=== PATIENT | female | born 1930 | race Caucasian/White ===

== ENCOUNTER 2016-10-18 23:59 | Inpatient (IN) | payer MEDICARE, OTHER ==
--- NOTE | ~2016-10-18 | CN ---
Consultation Report [facility] [address] [place]. [address] NAME: ESTHER EPPERSON : 30 STATUS : ADM IN PAT#: [id number] AGE: 85 ADM/REG DATE : 10/19/16 MR#: [id number] REPORT SERV DATE: 10/23/16 DICTATED BY: ALFRED LOONEY DATE: 10/23/16 REPORT STATUS : Draft TRANSCRIBED BY: MODL DATE: 10/23/16 DATE OF CONSULTATION: 10/23/2016 REASON FOR CONSULTATION: Arrhythmia and elevated troponin. HISTORY OF PRESENT ILLNESS: Ms. Epperson is an 85-year-old female whom I have been asked to see by the Hospitalist Service for management of the above conditions. She has been hospitalized since 10/19/2016 after presenting with cough, shortness of breath, and altered mental status with ensuing workup suggestive of pneumonia. She has been treated with broad-spectrum antibiotics and overnight developed progressive respiratory failure and tachycardia. I see that her heart rate was as high as 170s with likely sinus tachycardia. She was administered metoprolol and adenosine, but had persistent sinus tachycardia throughout most of the night. She also had an episode of nonsustained VT of approximately 20 seconds. She was started on amiodarone drip and continues on this. Her troponin has been elevated at 0.4. History is limited as the patient is on a non-rebreather with baseline dementia, but her [id number], her power of sports attorney, is at bedside and provides collateral history. He states that prior to arrival, the patient had mild cognitive impairment and could ambulate short distances with a walker. PAST MEDICAL HISTORY: Negative for any cardiac disease, specifically no AR, stroke, valvular heart disease, or prior heart rhythm disorder. She does have diabetes, hypertension, dementia, history of schizoaffective disorder with prior suicidal ideations, remote DVT, remote history of right breast cancer status post lumpectomy and radiation treatment, chronic lower back pain, and she also has gastroesophageal reflux disease. MEDICATIONS: Reviewed per medical record, notable for amlodipine, lisinopril, metoprolol, and simvastatin. ALLERGIES: SULFA CAUSES ITCHING, NAUSEA, AND VOMITING. MIDAZOLAM, UNKNOWN REACTION. FAMILY HISTORY: Noncontributory. SOCIAL HISTORY: The patient lives alone. There is no history of tobacco, alcohol, or illicits. REVIEW OF SYSTEMS: Unable to obtain due to current medical illness. PHYSICAL EXAMINATION: VITAL SIGNS: Heart rate is approximately 130, blood pressure is 150/80 by most recent noninvasive assessment, respiratory rate is 20. GENERAL: Elderly female, sleeping in bed, difficult to arouse. Consultation Report [facility] [id number] [place]. [address] NAME: ESTHER EPPERSON : 30 STATUS : ADM IN PAT#: [id number] AGE: 85 ADM/REG DATE : 10/19/16 MR#: [id number] REPORT SERV DATE: 10/23/16 DICTATED BY: ALFRED LOONEY DATE: 10/23/16 REPORT STATUS : Draft TRANSCRIBED BY: MODEldon DATE: 10/23/16 NECK: Supple. CARDIOVASCULAR: Tachycardic. Diminished S1 and S2. No obvious murmurs. PULMONARY: Diminished inspiratory effort, but no obvious rales and no wheezes currently. ABDOMEN: Soft, nondistended, and nontender. EXTREMITIES: Warm. LABORATORY DATA: Reviewed, notable for WBC of 7.2, hemoglobin 11.2, hematocrit 32.8, platelets 189. Sodium 139, potassium 4.0, chloride 105, bicarb 22, BUN 25, creatinine 0.95, glucose 180. Troponin 0.42 followed by 0.23. IMAGING: Chest x-ray demonstrates tortuous ectatic aorta, consolidation in the right base with associated pleural effusion. EKG and telemetry reviewed. Most recent EKG on 10/23/2016, time 0258 hours, demonstrates a narrow-complex tachycardia at a rate of approximately 150. No clear P waves. Telemetry demonstrates narrow-complex tachycardia, heart rate ranging from 120 to 170 suggestive of a sinus mechanism and frequent PACs and nonsustained VT with longest duration of approximately 20 seconds. IMPRESSION/RECOMMENDATIONS: 1. Pneumonia. 2. Respiratory failure. 3. Supraventricular tachycardia with data most suggestive of sinus tachycardia as underlying mechanism. 4. Ventricular tachycardia, nonsustained. 5. Dementia. 6. Hypertension. 7. Transient hypotension. 8. Elevated troponin suggestive of demand ischemia secondary to respiratory failure/pneumonia. The etiology of the patient's current tachycardia is most likely related to a sinus mechanism as opposed to re-entry. There has been a wide range of heart rates in the setting of underlying respiratory failure and pneumonia. Use of amiodarone temporarily for management of ventricular tachycardia is reasonable. Recommend continuous infusion today and would consider prolonging and/or transitioning to p.o. amiodarone if shows recurrent dysrhythmia. Metoprolol is also reasonable, but with low blood pressure, we would hold lisinopril for now. We will check an echocardiogram to rule out underlying cardiomyopathy. Regarding elevated troponin most suggestive of demand ischemia as opposed to acute coronary syndrome, we would not treat with anticoagulants. The patient is a poor candidate for any invasive testing and would defer an ischemic evaluation given overall clinical picture. I discussed the patient's medical severity with her power of sports attorney who confirms that her code status is DNR and DNI. Continue to provide supportive care for the above conditions and hope for recovery. Consultation Report [address] [place]. [address] NAME: ESTHER EPPERSON : 30 STATUS : ADM IN PAT#: [id number] AGE: 85 ADM/REG DATE : 10/19/16 MR#: [id number] REPORT SERV DATE: 10/23/16 DICTATED BY: ALFRED LOONEY DATE: 10/23/16 REPORT STATUS : Draft TRANSCRIBED BY: PRIYANK DATE: 10/23/16 FILEMON/PRIYANK Alfred Looney MD / [id number] CC: Corina Mena M.D.
--- NOTE | ~2016-10-18 | HP ---
History And Physical [address] [place]. [address] NAME: ESTHER EPPERSON : 30 STATUS : ADM IN PAT#: [id number] AGE: 85 ADM/REG DATE : 10/19/16 MR#: [id number] REPORT SERV DATE: 10/19/16 DICTATED BY: KESHIA FERNANDEZ DATE: 10/19/16 REPORT STATUS : Draft TRANSCRIBED BY: MODL DATE: 10/19/16 DATE OF ADMISSION: 10/19/2016 CHIEF COMPLAINT: An 85-year-old female at assisted living facility at [facility] now presenting with increasing shortness of breath, cough, and confusion. HISTORY OF PRESENTING ILLNESS: The patient's history was obtained through careful interview with the patient and [id number], who is the power of mergers and acquisitions attorney, coupled with review of [facility] and [facility] medical records. The patient first began to have hoarseness in her voice around 10/14/2016 or 10/15/2016 and then has had increasing shortness of breath characterized by dyspnea on exertion with a nonproductive cough. On the day prior to admission, she was weak, unstable. She fell twice. One time, she fell and hit her head, and was actually too weak to get up without complete assistance from friends and staff. She has had increasing confusion on her chronic dementia. No nausea or vomiting. No diarrhea. She has been more somnolent and sleeping most of the day. Sometimes, she sleeps straight through mealtime and has been skipping meals and has a slightly poor appetite. She describes subjective fevers and chills. She has chronic back pain. She has also noticed chest discomfort with breathing and coughing. She claims that her left chest hurts worse than her right chest that is mostly under her left breast without radiation. She is unable to really give a precise quality or severity of this pain. There is a report that her blood pressure dropped to about 60/40 at the assisted living facility today prior to coming into the hospital. REVIEW OF SYSTEMS: Otherwise, 14-point review of systems was obtained and was negative. PAST MEDICAL HISTORY: 1. Dementia. 2. Schizoaffective disorder. 3. Diabetes. 4. Hypertension. 5. Gastroesophageal reflux disorder, colon polyps, seen by Dr. Ni. 6. DVT more than 10 years ago. History And Physical [address] [place]. [address] NAME: ESTHER EPPERSON : 30 STATUS : ADM IN [facility]#: [id number] AGE: 85 ADM/REG DATE : 10/19/16 MR#: [id number] REPORT SERV DATE: 10/19/16 DICTATED BY: KESHIA FERNANDEZ DATE: 10/19/16 REPORT STATUS : Draft TRANSCRIBED BY: MODL DATE: 10/19/16 7. Macular degeneration. 8. Chronic back pain with scoliosis. 9. Right breast cancer, 2006, status post surgery, radiation, and tamoxifen. 10.Right hydronephrosis. PAST SURGICAL HISTORY: Right lumpectomy for breast cancer. ALLERGIES: SULFA AND MIDAZOLAM. SOCIAL HISTORY: No tobacco abuse. No alcohol abuse. Resides in assisted living facility at [facility]. 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 She never . Has no children. Her sister and [id number] are power of mergers and acquisitions attorney. FAMILY HISTORY: Diabetes and coronary artery disease. CURRENT MEDICATIONS: Include Colace, Celexa, Norvasc, Flonase, folic acid, glipizide, ibuprofen p.r.n., breathing treatments, Metoprolol-XL, melatonin, lisinopril, other eyedrops, Seroquel, ranitidine, simvastatin, MiraLAX, multivitamins, p.r.n. pain and anxiety medications. PHYSICAL EXAMINATION: VITAL SIGNS: Temperature 97.6, pulse 62, blood pressure 112/39, respiratory rate 20, O2 saturation 87% on room air. GENERAL: A chronically ill-appearing female, but in no evidence of particular distress while I am evaluating her. HEENT: Pupils equal, round, and reactive to light. No conjunctival pallor. No scleral icterus. Nares are patent. Oropharynx is clear of obstruction. Moist mucous membranes. NECK: Trachea midline. No thyromegaly. LYMPH: No cervical lymphadenopathy. No supraclavicular lymphadenopathy. RESPIRATORY: The patient has diminished breath sounds at the base of both lungs. Really seems symmetrical by my exam. She does have egophony at the base of both lungs as well. She has scattered rhonchi. No wheezes. No rales. Really nonlabored respiratory effort while at rest in the bed. CARDIOVASCULAR: Regular rate and rhythm. No murmurs, rubs, or gallops. She does have trace lower extremity edema around the ankles and feet that is symmetrical. ABDOMEN: Soft, nontender, nondistended. Normal bowel sounds auscultated throughout. No organomegaly. DERMATOLOGICAL: Warm and dry extremities. No pallor, no cyanosis. PSYCHIATRIC: Normal affect. A very pleasant mood. No current hallucinations. No suicidal ideation. No homicidal ideation. She is alert, but poorly oriented to time, location, and her recent history. LABORATORY DATA: White blood cell count 6.0, hemoglobin 9.5, hematocrit 29, platelets 130. Sodium 139, potassium 4.2, chloride 102, bicarb 29, BUN 39, creatinine 1.27 from baseline creatinine of 0.8, glucose 138. Urinalysis negative for infection. INR 1.2. Troponin negative. History And Physical [address] [address] NAME: ESTHER EPPERSON : 30 STATUS : ADM IN [facility]#: [id number] AGE: 85 ADM/REG DATE : 10/19/16 MR#: [id number] REPORT SERV DATE: 10/19/16 DICTATED BY: KESHIA FERNANDEZ DATE: 10/19/16 REPORT STATUS : Draft TRANSCRIBED BY: PRIYANK DATE: 10/19/16 STUDIES: Chest x-ray by my own evaluation shows large peripheral right lower lung pneumonia. ASSESSMENT AND PLAN: 1. Facility-acquired pneumonia. Check blood cultures. Place on IV antibiotics including cefepime and IV vancomycin. Obtain a swallow evaluation to rule out aspiration risk. 2. Hypoxic respiratory failure. 3. Acute kidney injury. Place on IV fluids. 4. Dementia. 5. Schizoaffective disorder. 6. Diabetes. Check hemoglobin A1c. Place on sliding scale insulin. KPL/MODL Keshia Fernandez M.D. / [id number] CC: Corina Lima M.D.
--- NOTE | ~2016-10-18 | DS ---
Discharge Summary [facility] [address] [place]. [address] NAME: ESTHER EPPERSON : 30 STATUS : DIS IN PAT#: [id number] AGE: 85 ADM/REG DATE : 10/19/16 MR#: [id number] REPORT SERV DATE: 10/25/16 DICTATED BY: DORIAN SMITH DATE: 10/24/16 REPORT STATUS : Draft TRANSCRIBED BY: MODL DATE: 10/24/16 ADMISSION DATE: 10/19/2016 DISCHARGE DATE: 10/24/2016 The patient will be discharged to hospice. HOSPITAL COURSE: An 85-year-old female with known history of dementia, does not know what year it is, is at [facility]. The patient has a known history of schizoaffective disorder, dementia, diabetes, hypertension, GERD, DVT more than 10 years ago, macular degeneration, right breast cancer 2007 status post surgery radiation with tamoxifen, right hydronephrosis, chronic back pain, scoliosis with right lumpectomy in the past. The patient came in initially with hoarseness of voice, increased shortness of breath, dyspnea on exertion, nonproductive cough, increased confusion, encephalopathy, severe sepsis and encephalopathy present on admission due to pneumonia, placed on IV vancomycin and cefepime, hypoxic respiratory failure, dementia, schizoaffective disorder, DI improved with fluids. The patient unfortunately had a nonsustained ventricular tachycardia beats, troponinemia. Given her age comorbidities, lack of meaningful recovery with intervention supervisor filter assembly stated ischemic workup intervention would not be a good candidacy for this patient, was placed with adenosine to amiodarone drip to amiodarone bolus. When I saw the patient, I spoke frankly with the power of environmental attorney. Power of environmental attorney stated she does not have a will to live, would rather just go to [facility], stay DNR DNI, and would like the patient to go to hospice. Given her nonsustained ventricular tachycardia, only being maintained with amiodarone, I am concerned about quick demise risk. As a result, the patient and family and team agree with hospice and going to hospice today. DISCHARGE DIAGNOSES: Pneumonia, respiratory failure, supraventricular tachycardia, nonsustained ventricular tachycardia, dementia, hypertension, schizoaffective disorder with increase her risk of nonsustained ventricular tachycardia and fatal arrhythmia. All questions were answered. It took well over 30 minutes to do. RIC/PRIYANK Dorian Smith DO / [id number] CC: DO Maricel Stubbs M.D.
[~2016-10-18 23:59] MED LIST: ADVIL PO; ASAB PO; ATRONASAL3 NAS; ATV.5 PO; ATV1 PO; CALTRA600D PO; CELEXA40 MG PO; DIGESTIVE ADVANTAGE PO; DSS PO; FLONASE NAS; GLUCCHONDR PO; GLUCXL2.5 PO; LEXAPRO10 PO; LISINOPRIL40 MG PO; LORT7 PO; MIRALAXPKT PO; MURO1285% OPH; MURO5OOIN OPH; NEXIUM40 PO; NORV10 PO; PREDFORTE OPH; PREDMILDOP OPH; PRIN10 PO; SEROQUEL XR200 MG PO; SLOWMAG PO; STOOL SOFTEN100 MG PO; TOPXL25 PO; VERAMYST27.5 MCG NAS; VITAMIN C100 MG PO; ZANTAC 150 PO; ZOCOR40 PO; [UNRECOGNIZED DRUG - OTHER] PO
[2016-10-19 00:49] LABS: BASOPHILS 0.3 %; BASOPHILS ABSOLUTE 0.02 10/3/uL (0.0-0.16); EOSINOPHILS ABSOLUTE 0.12 10/3/uL (0.0-0.53); HEMOGLOBIN 9.5 g/dL (12.0-16.0); IMMATURE GRANULOCYTES 0.3 %; IMMATURE GRANULOCYTES ABSOLUTE 0.02 10/3/uL (0.0-0.11); LYMPHOCYTES 18.4 %; LYMPHOCYTES ABSOLUTE 1.11 10/3/uL (0.67-4.30); MEAN CORPUSCULAR HEMOGLOB 28.9 pg (26.0-34.0); MEAN CORPUSCULAR VOLUME 87.5 fL (80-100); MEAN PLATELET VOLUME 10.2 fL (9.2-13.0); MONOCYTES 10.3 %; MONOCYTES ABSOLUTE 0.62 10/3/uL (0.21-1.20); NEUTROPHILS 68.7 %; NEUTROPHILS ABSOLUTE 4.14 10/3/uL (2.02-8.40); RBC DISTRIBUTION WIDTH 13.7 % (12.0-16.0); RED CELL COUNT 3.29 10/6/uL (4.0-5.6)
[2016-10-19 00:50] LABS: HEMATOCRIT 28.8 % (36.0-48.0); MANUAL DIFF NO %; PLATELET COUNT 130 10/3/uL (150-400)
[2016-10-19 00:53] LABS: ASCORBIC ACID (UR NOT ORDER) NEG (NEG); BILIRUBIN, URINE NEGATIVE (NEG); ER URINALYSIS TAT 0 Hrs 00 Mins; KETONE, URINE NEGATIVE (NEG); LEUKOCYTE ESTERASE(NOT OR NEG (NEG); NITRITE (URINE) NEG (NEG); WBC (NOT ORDERED) (RFLEX) 2 (0-5)
[2016-10-19 00:57] LABS: INTERNATIONAL NORMAL RATI 1.2 UNITS (-); PROTIME (NOT ORD) 14.6 SEC (12.0-14.5)
[2016-10-19 01:06] LABS: CALCIUM, SERUM 8.1 MG/DL (8.5-10.4); CHEST PAIN PROFILE TAT 0 Hrs 21 Mins; CHLORIDE, SERUM 102 MMOL/L (96-112); CO2 (CARBON DIOXIDE) 29 MMOL/L (24-34); CREATININE 1.27 MG/DL (0.55-1.02); GFR AFRICAN AMERICAN 45 ML/MIN (>=60); GFR NON AFRICAN AMERICAN 38 ML/MIN (>=60); GLUCOSE, SERUM 134 MG/DL (60-99); POTASSIUM, SERUM 4.2 MMOL/L (3.5-5.3); SODIUM, SERUM 139 MMOL/L (135-148); TROPONIN I <0.02 NG/ML (<0.05)
[2016-10-19 01:07] LABS: BUN (BLOOD UREA NITROGEN) 39 MG/DL (6-23)
[2016-10-19 01:11] LABS: BAND NEUTROPHILS 3 %; ER DIFF TAT 0 Hrs 26 Mins; LYMPHOCYTES 14 %; LYMPHOCYTES ABSOLUTE (CALC) 0.84 10/3/uL (0.67-4.30); MONOCYTES 10 %; NEUTROPHILS ABSOLUTE (CALC) 4.56 10/3/uL (2.02-8.40); PLATELET ESTIMATE SLT DEC (ADEQUATE); RBC MORPHOLOGY NORM (NORMAL); SEGMENTED NEUTROPHIL (0) 73 %; TOTAL NUCLEATED CELLS 100
[2016-10-19] MEDS ORDERED: NORV10 PO (02:39)
[2016-10-19] MEDS ORDERED: CELEXA40 MG PO (02:40)
[2016-10-19] MEDS ORDERED: DSS PO (02:40)
[2016-10-19] MEDS ORDERED: FLONASE NAS (02:41)
[2016-10-19] MEDS ORDERED: FOLIC PO (02:41)
[2016-10-19] MEDS ORDERED: GLUCXL2.5 PO (02:42)
[2016-10-19] MEDS ORDERED: ATRONASAL3 NAS (02:43)
[2016-10-19] MEDS ORDERED: MOTRIN IB200 MG PO (02:43)
[2016-10-19] MEDS ORDERED: MELATONIN5 M1 PO (02:44)
[2016-10-19] MEDS ORDERED: LISINOPRIL40 MG PO (02:44)
[2016-10-19] MEDS ORDERED: LOP25 PO (02:45)
[2016-10-19] MEDS ORDERED: PREDFORTE OPH (02:46)
[2016-10-19] MEDS ORDERED: ZOCOR40 PO (02:47)
[2016-10-19] MEDS ORDERED: ZANTAC150 MG PO (02:47)
[2016-10-19] MEDS ORDERED: SEROQUEL200 MG PO (02:47)
[2016-10-19] MEDS ORDERED: MURO1285% OPH (02:48)
[2016-10-19] MEDS ORDERED: THERA M PLUS PO (02:49)
[2016-10-19] MEDS ORDERED: T PO ×2 (02:50→02:51)
[2016-10-19] MEDS ORDERED: MIRALAX POWDER1 PKT PO (02:50)
[2016-10-19] MEDS ORDERED: BISR PR (02:51)
[2016-10-19] MEDS ORDERED: COMBIVENT RESPIM4 GM INH (02:54)
[2016-10-19] MEDS ORDERED: ATV.5 PO (02:54)
[2016-10-19] MEDS ORDERED: NORCO1 TA1 PO (02:55)
[2016-10-19] MEDS ORDERED: SENTAB PO (02:56)
[2016-10-19 08:35] LABS: BASOPHILS 0.2 %; BASOPHILS ABSOLUTE 0.01 10/3/uL (0.0-0.16); EOSINOPHILS ABSOLUTE 0.18 10/3/uL (0.0-0.53); HEMATOCRIT 30.5 % (36.0-48.0); HEMOGLOBIN 10.2 g/dL (12.0-16.0); IMMATURE GRANULOCYTES 0.3 %; IMMATURE GRANULOCYTES ABSOLUTE 0.02 10/3/uL (0.0-0.11); LYMPHOCYTES 18.4 %; MEAN CORPUS HGB CONC 33.4 g/dL (32.0-36.0); MEAN CORPUSCULAR HEMOGLOB 28.8 pg (26.0-34.0); MEAN CORPUSCULAR VOLUME 86.2 fL (80-100); MEAN PLATELET VOLUME 10.2 fL (9.2-13.0); MONOCYTES 10.7 %; MONOCYTES ABSOLUTE 0.64 10/3/uL (0.21-1.20); NEUTROPHILS 67.4 %; NEUTROPHILS ABSOLUTE 4.03 10/3/uL (2.02-8.40); PLATELET COUNT 135 10/3/uL (150-400); RBC DISTRIBUTION WIDTH 13.7 % (12.0-16.0); RED CELL COUNT 3.54 10/6/uL (4.0-5.6)
[2016-10-19 08:36] LABS: MANUAL DIFF NO %
[2016-10-19 08:38] LABS: INTERNATIONAL NORMAL RATI 1.1 UNITS (-); PARTIAL THROMBO TIME 35.3 SEC (22.5-37.2); PROTIME (NOT ORD) 14.5 SEC (12.0-14.5)
[2016-10-19 08:50] LABS: A/G RATIO 0.7 (0.7-1.9); ALBUMIN 2.7 G/DL (3.5-5.0); ALKALINE PHOSPHATASE 51 U/L (45-117); BUN (BLOOD UREA NITROGEN) 33 MG/DL (6-23); CALCIUM, SERUM 8.4 MG/DL (8.5-10.4); CHLORIDE, SERUM 105 MMOL/L (96-112); CO2 (CARBON DIOXIDE) 28 MMOL/L (24-34); CREATININE 1.14 MG/DL (0.55-1.02); GFR AFRICAN AMERICAN 51 ML/MIN (>=60); GFR NON AFRICAN AMERICAN 44 ML/MIN (>=60); GLOBULIN 3.9 G/DL (2.5-4.1); GLUCOSE, SERUM 98 MG/DL (60-99); POTASSIUM, SERUM 4.4 MMOL/L (3.5-5.3); SGOT(AST) 11 U/L (5-40); SGPT(ALT) 14 U/L (5-65); SODIUM, SERUM 140 MMOL/L (135-148); TOTAL BILIRUBIN 0.2 MG/DL (0-1.2); TOTAL PROTEIN 6.6 G/DL (6.0-8.5)
[2016-10-19 10:10] LABS: PROCALCITONIN 0.24 ng/mL (<0.5)
[2016-10-20 06:25] LABS: HEMATOCRIT 32.1 % (36.0-48.0); HEMOGLOBIN 10.8 g/dL (12.0-16.0); MEAN CORPUS HGB CONC 33.6 g/dL (32.0-36.0); MEAN CORPUSCULAR HEMOGLOB 29.2 pg (26.0-34.0); MEAN CORPUSCULAR VOLUME 86.8 fL (80-100); MEAN PLATELET VOLUME 10.2 fL (9.2-13.0); PLATELET COUNT 157 10/3/uL (150-400); RBC DISTRIBUTION WIDTH 13.3 % (12.0-16.0); WHITE BLOOD CELLS 7.7 10/3/uL (4.5-10.5)
[2016-10-20 06:28] LABS: MANUAL DIFF YES %
[2016-10-20 06:33] LABS: CALCIUM, SERUM 8.1 MG/DL (8.5-10.4); CHLORIDE, SERUM 107 MMOL/L (96-112); CO2 (CARBON DIOXIDE) 24 MMOL/L (24-34); CREATININE 0.88 MG/DL (0.55-1.02); GFR AFRICAN AMERICAN 69 ML/MIN (>=60); GFR NON AFRICAN AMERICAN 60 ML/MIN (>=60); POTASSIUM, SERUM 4.3 MMOL/L (3.5-5.3); SODIUM, SERUM 141 MMOL/L (135-148)
[2016-10-20 06:36] LABS: BUN (BLOOD UREA NITROGEN) 19 MG/DL (6-23); GLUCOSE, SERUM 163 MG/DL (60-99)
[2016-10-20 07:48] LABS: BAND NEUTROPHILS 8 %; EOSINOPHILS 2 %; EOSINOPHILS ABSOLUTE (CALC) 0.15 10/3/uL (0.0-0.53); LYMPHOCYTES 14 %; LYMPHOCYTES ABSOLUTE (CALC) 1.08 10/3/uL (0.67-4.30); MONOCYTES 10 %; MONOCYTES ABSOLUTE (CALC) 0.77 10/3/uL (0.21-1.20); PLATELET ESTIMATE ADQ (ADEQUATE); SEGMENTED NEUTROPHIL (0) 66 %; TOTAL NUCLEATED CELLS 100
[2016-10-20 07:49] LABS: RBC MORPHOLOGY NORM (NORMAL)
[2016-10-21 07:08] LABS: BASOPHILS 0.1 %; BASOPHILS ABSOLUTE 0.01 10/3/uL (0.0-0.16); EOSINOPHILS 1.2 %; EOSINOPHILS ABSOLUTE 0.08 10/3/uL (0.0-0.53); HEMOGLOBIN 10.8 g/dL (12.0-16.0); IMMATURE GRANULOCYTES 1.7 %; IMMATURE GRANULOCYTES ABSOLUTE 0.12 10/3/uL (0.0-0.11); LYMPHOCYTES 12.9 %; LYMPHOCYTES ABSOLUTE 0.89 10/3/uL (0.67-4.30); MEAN CORPUS HGB CONC 33.8 g/dL (32.0-36.0); MEAN PLATELET VOLUME 9.4 fL (9.2-13.0); MONOCYTES 13.4 %; MONOCYTES ABSOLUTE 0.92 10/3/uL (0.21-1.20); NEUTROPHILS 70.7 %; NEUTROPHILS ABSOLUTE 4.86 10/3/uL (2.02-8.40); PLATELET COUNT 165 10/3/uL (150-400); RBC DISTRIBUTION WIDTH 13.1 % (12.0-16.0); RED CELL COUNT 3.72 10/6/uL (4.0-5.6); WHITE BLOOD CELLS 6.9 10/3/uL (4.5-10.5)
[2016-10-21 07:12] LABS: MANUAL DIFF NO %
[2016-10-21 07:25] LABS: CALCIUM, SERUM 8.3 MG/DL (8.5-10.4); CHLORIDE, SERUM 102 MMOL/L (96-112); CO2 (CARBON DIOXIDE) 25 MMOL/L (24-34); CREATININE 0.79 MG/DL (0.55-1.02); GFR AFRICAN AMERICAN 79 ML/MIN (>=60); GFR NON AFRICAN AMERICAN 68 ML/MIN (>=60); SODIUM, SERUM 137 MMOL/L (135-148)
[2016-10-21 07:26] LABS: BUN (BLOOD UREA NITROGEN) 11 MG/DL (6-23); GLUCOSE, SERUM 112 MG/DL (60-99)
[2016-10-22 07:07] LABS: HEMATOCRIT 32.8 % (36.0-48.0); HEMOGLOBIN 11.2 g/dL (12.0-16.0); MEAN CORPUS HGB CONC 34.1 g/dL (32.0-36.0); MEAN CORPUSCULAR HEMOGLOB 28.9 pg (26.0-34.0); MEAN CORPUSCULAR VOLUME 84.5 fL (80-100); MEAN PLATELET VOLUME 9.5 fL (9.2-13.0); PLATELET COUNT 189 10/3/uL (150-400); RBC DISTRIBUTION WIDTH 13.4 % (12.0-16.0); RED CELL COUNT 3.88 10/6/uL (4.0-5.6); WHITE BLOOD CELLS 7.2 10/3/uL (4.5-10.5)
[2016-10-22 07:16] LABS: MANUAL DIFF YES %
[2016-10-22 07:19] LABS: BUN (BLOOD UREA NITROGEN) 18 MG/DL (6-23); CALCIUM, SERUM 8.5 MG/DL (8.5-10.4); CHLORIDE, SERUM 104 MMOL/L (96-112); CO2 (CARBON DIOXIDE) 25 MMOL/L (24-34); CREATININE 0.89 MG/DL (0.55-1.02); GFR AFRICAN AMERICAN 68 ML/MIN (>=60); GFR NON AFRICAN AMERICAN 59 ML/MIN (>=60); GLUCOSE, SERUM 142 MG/DL (60-99); POTASSIUM, SERUM 3.8 MMOL/L (3.5-5.3); SODIUM, SERUM 141 MMOL/L (135-148)
[2016-10-22 07:39] LABS: BAND NEUTROPHILS 2 %; LYMPHOCYTES 11 %; LYMPHOCYTES ABSOLUTE (CALC) 0.79 10/3/uL (0.67-4.30); MONOCYTES 8 %; MONOCYTES ABSOLUTE (CALC) 0.58 10/3/uL (0.21-1.20); NEUTROPHILS ABSOLUTE (CALC) 5.83 10/3/uL (2.02-8.40); PLATELET ESTIMATE ADQ (ADEQUATE); RBC MORPHOLOGY NORM (NORMAL); SEGMENTED NEUTROPHIL (0) 79 %; TOTAL NUCLEATED CELLS 100
[2016-10-23 04:51] LABS: CHLORIDE, SERUM 105 MMOL/L (96-112); CO2 (CARBON DIOXIDE) 22 MMOL/L (24-34); CREATININE 0.95 MG/DL (0.55-1.02); GFR AFRICAN AMERICAN 63 ML/MIN (>=60); GFR NON AFRICAN AMERICAN 55 ML/MIN (>=60); SODIUM, SERUM 139 MMOL/L (135-148)
[2016-10-23 04:54] LABS: BUN (BLOOD UREA NITROGEN) 25 MG/DL (6-23); GLUCOSE, SERUM 180 MG/DL (60-99)
[2016-10-23 08:02] LABS: TROPONIN I 0.23 NG/ML (<0.05)
[2016-10-23 10:59] LABS: HEMATOCRIT 32.7 % (36.0-48.0); HEMOGLOBIN 10.7 g/dL (12.0-16.0); MEAN CORPUS HGB CONC 32.7 g/dL (32.0-36.0); MEAN CORPUSCULAR HEMOGLOB 28.8 pg (26.0-34.0); MEAN PLATELET VOLUME 11.3 fL (9.2-13.0); PLATELET COUNT 194 10/3/uL (150-400); RBC DISTRIBUTION WIDTH 13.4 % (12.0-16.0); RED CELL COUNT 3.72 10/6/uL (4.0-5.6)
[2016-10-23 11:00] LABS: MANUAL DIFF YES %; MEAN CORPUSCULAR VOLUME 87.9 fL (80-100)
[2016-10-23 11:19] LABS: BAND NEUTROPHILS 2 %; LYMPHOCYTES 15 %; OVALOCYTES 1+ (3-10/OIF) (0-2/OIF); PLATELET ESTIMATE ADQ (ADEQUATE); SEGMENTED NEUTROPHIL (0) 83 %; TOTAL NUCLEATED CELLS 100
[2016-10-23 11:38] LABS: PROCALCITONIN 0.14 ng/mL (<0.5)
[2016-10-23 11:50] LABS: CHLORIDE, SERUM 105 MMOL/L (96-112); CO2 (CARBON DIOXIDE) 19 MMOL/L (24-34); CREATININE 1.01 MG/DL (0.55-1.02); GFR AFRICAN AMERICAN 59 ML/MIN (>=60); GFR NON AFRICAN AMERICAN 51 ML/MIN (>=60); GLUCOSE, SERUM 167 MG/DL (60-99); PHOSPHORUS, SERUM 4.4 MG/DL (2.5-4.5); SODIUM, SERUM 139 MMOL/L (135-148)
[2016-10-23 11:51] LABS: BUN (BLOOD UREA NITROGEN) 29 MG/DL (6-23); POTASSIUM, SERUM 4.9 MMOL/L (3.5-5.3)
[2016-10-24 05:30] LABS: BASOPHILS 0.3 %; BASOPHILS ABSOLUTE 0.02 10/3/uL (0.0-0.16); EOSINOPHILS 6.2 %; EOSINOPHILS ABSOLUTE 0.45 10/3/uL (0.0-0.53); HEMATOCRIT 33.8 % (36.0-48.0); HEMOGLOBIN 11.3 g/dL (12.0-16.0); IMMATURE GRANULOCYTES 4.5 %; IMMATURE GRANULOCYTES ABSOLUTE 0.33 10/3/uL (0.0-0.11); LYMPHOCYTES 16.3 %; LYMPHOCYTES ABSOLUTE 1.19 10/3/uL (0.67-4.30); MEAN CORPUS HGB CONC 33.4 g/dL (32.0-36.0); MEAN CORPUSCULAR HEMOGLOB 28.8 pg (26.0-34.0); MEAN CORPUSCULAR VOLUME 86.2 fL (80-100); MEAN PLATELET VOLUME 9.9 fL (9.2-13.0); MONOCYTES ABSOLUTE 0.73 10/3/uL (0.21-1.20); NEUTROPHILS 62.7 %; NEUTROPHILS ABSOLUTE 4.58 10/3/uL (2.02-8.40); PLATELET COUNT 219 10/3/uL (150-400); RBC DISTRIBUTION WIDTH 13.5 % (12.0-16.0); RED CELL COUNT 3.92 10/6/uL (4.0-5.6); WHITE BLOOD CELLS 7.3 10/3/uL (4.5-10.5)
[2016-10-24 05:34] LABS: MANUAL DIFF NO %
[2016-10-24 05:38] LABS: BUN (BLOOD UREA NITROGEN) 29 MG/DL (6-23); CALCIUM, SERUM 8.3 MG/DL (8.5-10.4); CHLORIDE, SERUM 103 MMOL/L (96-112); CREATININE 1.08 MG/DL (0.55-1.02); GFR AFRICAN AMERICAN 54 ML/MIN (>=60); GFR NON AFRICAN AMERICAN 47 ML/MIN (>=60); SODIUM, SERUM 140 MMOL/L (135-148)
[2016-10-24 05:40] LABS: CO2 (CARBON DIOXIDE) 27 MMOL/L (24-34); GLUCOSE, SERUM 83 MG/DL (60-99); PHOSPHORUS, SERUM 3.3 MG/DL (2.5-4.5); POTASSIUM, SERUM 3.6 MMOL/L (3.5-5.3)
[2016-10-24 06:07] LABS: PROCALCITONIN 0.13 ng/mL (<0.5)
== END 2016-10-24 12:36 | disposition hospice, inpatient (51) | DRG 871 ==
LOC: ER 23:59 → 6NO 10-19 02:21
PROVIDERS: Emergency Medicine; Hospitalist; Internal Medicine; Nurse Practitioner Family
DX: A41.9 Sepsis, unspecified organism (principal); J18.9 Pneumonia, unspecified organism; J96.01 Acute respiratory failure with hypoxia; G93.41 Metabolic encephalopathy; I47.2 Ventricular tachycardia; N17.9 Acute kidney failure, unspecified; N13.30 Unspecified hydronephrosis; I47.1 Supraventricular tachycardia; I24.8 Other forms of acute ischemic heart disease; R65.20 Severe sepsis without septic shock; F03.90 Unspecified dementia, unspecified severity, without behavioral disturbance, psychotic disturbance, mood disturbance, and anxiety; F25.9 Schizoaffective disorder, unspecified; Z51.5 Encounter for palliative care; Z66 Do not resuscitate; E11.9 Type 2 diabetes mellitus without complications; I10 Essential (primary) hypertension; K21.9 Gastro-esophageal reflux disease without esophagitis; M54.9 Dorsalgia, unspecified; H35.30 Unspecified macular degeneration; Z86.718 Personal history of other venous thrombosis and embolism; Z85.3 Personal history of malignant neoplasm of breast; Z92.3 Personal history of irradiation; Z86.010 Personal history of colon polyps
CPT/HCPCS: 36600; 71010; 74000; 80048; 80053; 81001; 82330; 82803; 82947; 82962; 83036; 83735; 83880; 84100; 84132; 84145; 84295; 84443; 84484; 85014; 85025; 85610; 85730; 87040; 87449; 92610-GN; 92950; 93005; 93308; 93321; 93325; 94640; 97161-GP; 99285; A9270-GY; G8978-CL-GP; G8979-CK-GP; G8996-CJ-GN; G8997-CJ-GN; G8998-CJ-GN; J0153; J0282; J0456; J0692; J3370; J3486